=== PATIENT | female | born 1980 | race Caucasian/White ===

== ENCOUNTER 2017-04-15 13:49 | Emergency (ER) | payer OTHER ==
[~2017-04-15] VITALS: Ht 170.2 cm; Wt 66.8 kg
[2017-04-15 13:57] VITALS: BP 132/73
== END 2017-04-15 14:40 | disposition home or self-care (01) ==
LOC: ED 13:49
DX: J02.9 Acute pharyngitis, unspecified (principal); R03.0 Elevated blood-pressure reading, without diagnosis of hypertension; H92.03 Otalgia, bilateral; M54.5 Low back pain
CPT/HCPCS: J0561

== ENCOUNTER 2017-05-23 22:51 | Emergency (ER) | payer OTHER ==
[~2017-05-23] VITALS: Ht 170.2 cm; Wt 66.7 kg
[2017-05-23 23:05] VITALS: Ht 170.2 cm; Wt 66.7 kg
[2017-05-24 01:30] VITALS: BP 118/68
== END 2017-05-24 01:30 | disposition home or self-care (01) ==
LOC: ED 22:51
DX: R51 Headache (principal); R42 Dizziness and giddiness
CPT/HCPCS: J1200; J1885; J2765; J7030

== ENCOUNTER 2018-03-10 18:05 | Emergency (ER) | payer OTHER ==
[~2018-03-10] VITALS: Ht 170.2 cm; Wt 65.3 kg
[2018-03-10 18:15] VITALS: Ht 170.2 cm; Wt 65.3 kg
[2018-03-10 19:00] LABS: BASOPHIL % 0.4 % (0-2); PLATELET COUNT 271 x10^3mcL (130-400)
[2018-03-10 19:01] LABS: RED CELL DISTRIBUTION WIDTH 15.4 % (11.5-14.5)
[2018-03-10 19:07] LABS: CALCIUM 8.8 mg/dL (8.5-10.1); CARBON DIOXIDE 27.5 mmol/L (21-32); CHLORIDE SERUM 103 mmol/L (98-107); CREATININE SERUM 0.8 mg/dL (0.6-1.0); GFR1 > 60 mL/min; GLUCOSE SERUM 106 mg/dL (74-106); POTASSIUM SERUM 3.9 mmol/L (3.5-5.1); SODIUM SERUM 139 mmol/L (136-145)
[2018-03-10 19:12] LABS: ALKALINE PHOSPHATASE 41 U/L (46-116); ALT/SGPT 14 U/L (14-59); AST/SGOT 9 U/L (15-37); BILIRUBIN TOTAL 0.19 mg/dL (0.20-1.00); CHOLESTEROL 179 mg/dL (<200); HDL CHOLESTEROL 48 mg/dL (40-60); PHOSPHOROUS 3.4 mg/dL (2.5-4.9); TOTAL PROTEIN, SERUM 7.9 g/dL (6.4-8.2); URIC ACID 2.9 mg/dL (2.6-6.0)
[2018-03-10 19:39] VITALS: BP 126/74
== END 2018-03-10 19:39 | disposition home or self-care (01) ==
LOC: ED 18:05
PROVIDERS: Emergency Medicine
DX: R07.89 Other chest pain (principal); R42 Dizziness and giddiness; R10.9 Unspecified abdominal pain; Z98.890 Other specified postprocedural states
CPT/HCPCS: 36415; J1885

== ENCOUNTER 2019-01-01 15:40 | Emergency (ER) | payer OTHER ==
[~2019-01-01] VITALS: Ht 170.2 cm; Wt 66.2 kg
[2019-01-01 15:44] VITALS: Ht 170.2 cm; Wt 66.2 kg
[2019-01-01 18:57] VITALS: BP 125/65
== END 2019-01-01 18:57 | disposition home or self-care (01) ==
LOC: ED 15:40
DX: N64.4 Mastodynia (principal); N63.0 Unspecified lump in unspecified breast
CPT/HCPCS: 76642